=== PATIENT | female | born 1975 | race Caucasian/White ===

== ENCOUNTER → 2020-08-16 | Outpatient (CLI) | payer OTHER ==
[~2020-08-16] MED LIST: CELEXA20 MG PO; CLONAZEPAM0.5 MG PO; IBUPROFEN600 MG PO; NAPROSYN500 MG PO; NORCO 5-325 TA1 EACH PO; VITAMIN B-1000 MCG/M IM
[2020-08-16 10:30] LABS: BUN/CREATININE RATIO 10 (0-10)
== END ==
LOC: LAB 09:39
PROVIDERS: Emergency Medicine
DX: H93.19 Tinnitus, unspecified ear (principal); R53.83 Other fatigue; E53.8 Deficiency of other specified B group vitamins; E55.9 Vitamin D deficiency, unspecified; E04.1 Nontoxic single thyroid nodule; K21.9 Gastro-esophageal reflux disease without esophagitis
CPT/HCPCS: 36415; 80053; 84443

== ENCOUNTER → 2020-11-17 | Outpatient (CLI) | payer OTHER ==
[2020-11-17 10:01] LABS: HEMOGLOBIN 12.1 gm/dl (12.3-15.3); WHITE BLOOD COUNT 6.5 K/UL (4.5-11.0)
[2020-11-17 10:20] LABS: BUN/CREATININE RATIO 12 (0-10)
== END ==
LOC: LAB 09:09
PROVIDERS: Emergency Medicine
DX: H81.13 Benign paroxysmal vertigo, bilateral (principal); N30.00 Acute cystitis without hematuria; R53.83 Other fatigue; E53.9 Vitamin B deficiency, unspecified; E55.9 Vitamin D deficiency, unspecified; K21.9 Gastro-esophageal reflux disease without esophagitis; E03.9 Hypothyroidism, unspecified
CPT/HCPCS: 36415; 80053; 82607; 84443; 85025

== ENCOUNTER 2021-07-24 14:06 | Emergency (ER) | payer OTHER ==
[2021-07-24] MEDS ORDERED: IBUPROFEN400 MG PO (15:22)
== END 2021-07-24 15:41 | disposition home or self-care (01) ==
LOC: ER1 14:06
DX: S93.602A Unspecified sprain of left foot, initial encounter (principal); X50.9XXA Other and unspecified overexertion or strenuous movements or postures, initial encounter
CPT/HCPCS: 73610; 73630; 99283

== ENCOUNTER → 2022-01-05 | Outpatient (CLI) | payer OTHER ==
[~2022-01-05] MED LIST changes: +IBUPROFEN400 MG PO
[2022-01-05 08:24] LABS: HEMOGLOBIN 12.3 gm/dl (12.3-15.3); RED BLOOD COUNT 4.08 M/UL (4.00-5.10); WHITE BLOOD COUNT 5.3 K/UL (4.5-11.0)
[2022-01-05 14:39] LABS: BUN/CREATININE RATIO 16 (0-10)
[2022-01-07 12:12] LABS: CHOLESTEROL, TOTAL 184 mg/dL (100-199); HDL SIZE 9.4 nm (>=9.2); HDL-C 59 mg/dL (>39); HDL-P (TOTAL) 33.7 umol/L (>=30.5); LARGE HDL-P 8.2 umol/L (>=4.8); LARGE VLDL-P <0.8 nmol/L (<=2.7); LDL SIZE 21.3 nm (>20.5); LDL SIZE 21.3 nm (>=20.8); LDL-C 114 mg/dL (0-99); LDL-P 1319 nmol/L (<1000); LP-IR SCORE <25 (<=45); SMALL LDL-P 412 nmol/L (<=527); TRIGLYCERIDES 58 mg/dL (0-149); VLDL SIZE 36.6 nm (<=46.6)
== END ==
LOC: LAB 07:59
PROVIDERS: Emergency Medicine
DX: R53.83 Other fatigue (principal); R10.811 Right upper quadrant abdominal tenderness; R11.0 Nausea; M54.2 Cervicalgia; K21.9 Gastro-esophageal reflux disease without esophagitis; F41.1 Generalized anxiety disorder; E04.1 Nontoxic single thyroid nodule; E53.9 Vitamin B deficiency, unspecified; E55.9 Vitamin D deficiency, unspecified
CPT/HCPCS: 36415; 80053; 80061; 82306; 82607; 83704; 84443; 84550; 85025

== ENCOUNTER → 2022-01-24 | Outpatient (CLI) | payer OTHER | LOC: EXRD 09:19 | DX: R10.811 Right upper quadrant abdominal tenderness (principal); R53.83 Other fatigue; R11.0 Nausea; E04.2 Nontoxic multinodular goiter | CPT/HCPCS: 76536; 76705 ==

== ENCOUNTER 2022-03-05 07:55 | Emergency (ER) | payer OTHER ==
[2022-03-05 08:56] LABS: HEMOGLOBIN 12.8 gm/dl (12.3-15.3); RED BLOOD COUNT 4.17 M/UL (4.00-5.10); WHITE BLOOD COUNT 6.2 K/UL (4.5-11.0)
[2022-03-05 09:49] LABS: BUN/CREATININE RATIO 14 (0-10)
== END 2022-03-05 10:41 | disposition home or self-care (01) ==
LOC: ER1 07:55
PROVIDERS: Physician Assistant
DX: J06.9 Acute upper respiratory infection, unspecified (principal); K21.9 Gastro-esophageal reflux disease without esophagitis; Z87.891 Personal history of nicotine dependence; Z20.822 Contact with and (suspected) exposure to COVID-19
CPT/HCPCS: 71045; 80053; 82550; 82553; 84484; 85025; 87081; 87880; 96374; 96375; 99283; J1885; J2405; U0002